=== PATIENT | male | born 1965 | race Two or more races ===

== ENCOUNTER 2019-02-19 13:43 | Outpatient (CLI) | payer OTHER ==
[2019-02-18 14:30] VITALS: BP 119/79
[~2019-02-19] VITALS: Ht 162.6 cm; Wt 106.1 kg
[2019-02-19] MEDS ORDERED: ENALAPRIL MALE2.5 MG ORAL (16:26)
[2019-02-19] MEDS ORDERED: SIMVASTATIN5 MG ORAL (16:26)
[2019-02-19] MEDS ORDERED: ASPIRIN EC81 MG ORAL (16:26)
--- NOTE | 2019-02-19 17:45 | Consultation ---
DATE OF CONSULTATION: 02/19/2019 CHIEF COMPLAINT: Screening colonoscopy evaluation. HISTORY OF PRESENT ILLNESS: The patient is a very pleasant 53-year-old male, never had a colonoscopy, complained of some testicular pain which has been followed but actually he is here for colonoscopy. PAST MEDICAL HISTORY: 1. Hypertension. 2. PAST SURGICAL HISTORY: None. MEDICATIONS: Enalapril, simvastatin, and aspirin. FAMILY HISTORY: No family history of GI malignancies. SOCIAL HISTORY: The patient denies any tobacco, alcohol, or drug abuse. ALLERGIES: No known drug allergies. PHYSICAL EXAMINATION: VITAL SIGNS: Temperature 98.6, pulse 70, respirations 20, and blood pressure 119/79. HEENT: Normocephalic and atraumatic. Sclerae anicteric. NECK: Supple. No evidence of lymphadenopathy. CARDIOVASCULAR: Regular rate and rhythm. Plus S1 and S2. No obvious murmur. LUNGS: Clear to auscultation bilaterally. ABDOMEN: Positive bowel sounds. Soft and nontender. No rebound. No guarding. No peritoneal sign. EXTREMITIES: No cyanosis, no clubbing, no edema. ASSESSMENT AND PLAN: The patient is a 53-year-old here for screening colonoscopy. The patient was given instruction and the patient for colonoscopy. He is awaiting to get authorization for his colonoscopy. As soon as we get that, we will schedule him. Sonny Chavarria M.D. DR: Saeed JOB#: [id number] CC:
== END 2019-02-19 15:56 | disposition home or self-care (01) ==
LOC: PAN 13:43
DX: Z01.818 Encounter for other preprocedural examination (principal); N50.819 Testicular pain, unspecified; Z79.82 Long term (current) use of aspirin; Z79.899 Other long term (current) drug therapy